=== PATIENT | female | born 1995 | race Caucasian/White ===

== ENCOUNTER 2023-12-29 23:49 | Emergency (ER) | payer OTHER, SELFPAY ==
[2023-12-29 23:58] VITALS: BP 144/93; PULSE 115; RESP 18; TEMP 36.6; O2SAT 99; BMI 32.5
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
--- NOTE | 2023-12-30 00:05 | ED_ITS ---
<Statement entered by Blanca Chan MD - 12/30/23 00:07> addendum opened in error Discharge Plan Disposition Chief Complaint: Medical Clearance Referrals Follow up/Referrals: Provider,MD Raymundo [Primary Care Provider] - See instructions Activity Restrictions/Add. Instructions Additional Instructions/Restrictions: Patient is medically cleared for incarceration/group home Clinical Impressions Clinical Impression: Medical clearance for incarceration Discharge ED Provider: Blanca Chan Adult HPI General Chief complaint: Medical Clearance Stated complaint: medical clearance, possible evaluation Time Seen by Provider: 12/29/23 23:52 Mode of Arrival: Ambulatory Source of Information: Patient and Law Enforcement Limitations: No Limitations Description of Symptoms (Recalled from ER Triage Doc. by RN): pt is here for a medical clearance. pt states she does not have any complaints. [facility] Disclaimer: The information contained in this section may have been updated after the patient was seen, as this information can be updated by other users. Social History (Updated 12/30/23 @ 00:05 by Blanca Chan MD) Smoking Status: Current every day smoker alcohol intake: current current occupational status: other Travel in the last 8 weeks: None ROS Obtained: Yes Systems reviewed as appropriate & no additional complaints except as documented Physical Exam General General appearance: alert, in no apparent distress and other (Some slurring of her speech and smells of alcohol) Respiratory Respiratory exam: Present normal lung sounds bilaterally; Absent respiratory distress Cardiovascular Cardiovascular exam: Present regular rate and normal rhythm Neurological Exam Neurological exam: Present alert and oriented X3 Medical Decision Making Terrance Inquiry Pt receiving controlled substance: No Vital Signs: 12/29/23 23:58 Temperature 98 F Temperature Source Oral Pulse Rate [Left] 115 H Respiratory Rate 18 Blood Pressure [Right Arm] 144/93 H Blood Pressure Mean [Right Arm] 110 Blood Pressure Source [Right Arm] Automatic Cuff Blood Pressure Position [Right Arm] Sitting 02 Sat by Pulse Oximetry 99 Critical Care Critical Care Time Critical Care Time: No
[2023-12-30 00:07] VITALS: BP 144/93; PULSE 115; RESP 16; TEMP 36.6
== END 2023-12-30 00:10 ==
LOC: ER 12-30 00:09
PROVIDERS: Emergency Provider Emergency Medicine
DX: R45.851 Suicidal ideations (principal); S51.811A Laceration without foreign body of right forearm, initial encounter; W26.8XXA Contact with other sharp object(s), not elsewhere classified, initial encounter; F17.210 Nicotine dependence, cigarettes, uncomplicated; F41.9 Anxiety disorder, unspecified
CPT/HCPCS: 99281